=== PATIENT | female | born 1970 | race American Indian/Alaskan Native ===

== ENCOUNTER 2016-07-10 14:25 | Outpatient (CLI) | payer OTHER ==
--- NOTE | 2016-07-10 15:29 | Mammography Report ---
BILATERAL MAMMOGRAM: FINDINGS: The breasts are almost entirely fat (<25% glandular). No mass, distortion, suspicious calcification, or skin change is seen. There are no significant changes when compared to her prior examination in 2015. CAD was utilized. IMPRESSION: Negative mammogram. There is no mammographic evidence of malignancy. RECOMMENDATION: Follow-up per ACS guidelines. BI-RADS CATEGORY: 1 = Negative ACR BI-RADS MAMMOGRAPHIC CODES: 0 = Needs additional imaging evaluation; 1 = Negative; 2 = Benign; 3 = Probably benign; 4 = Suspicious; 5 = Malignant; 6 = Known biopsy-proven malignancy COMMENT: 1. Dense breast tissue, i.e., adenosis, fibrocystic changes, etc., may obscure an underlying neoplasm. 2. Approximately 10% of cancers are not detected with mammography. 3. A negative mammography report should not delay biopsy if a clinically suspicious mass is present. COMMENT: Patient follow-up letters are generated in [employer].
== END 2016-07-10 14:26 | disposition home or self-care (01) ==
LOC: SPVWC 14:25
PROVIDERS: ATTEND Family Medicine Sports Medicine
DX: Z12.31 Encounter for screening mammogram for malignant neoplasm of breast (principal)
CPT/HCPCS: 77067; G0202

== ENCOUNTER 2021-03-28 09:50 | Day surgery (SDC) | payer OTHER ==
--- NOTE | 2021-03-20 09:18 | History and Physical Report ---
History of Present Illness Date of examination: 03/17/21 Date of admission: 03/21/20 Chief complaint: heavy periods History of present illness: Visit Type: Pre-Op CC: Pre op. History of Present Illness: pt presents for pre op visit: Hysteroscopy with D&C......... ............................................................Kina Shankar March 17, 2021 1:57 PM Mask, Patient denies fever, cough, shortness of breath and exposure to COVID-19. Pt presents c/o heavier bleeding. Pt has h/o fibroids dx'd years ago and prior recently, had heavy period with passing clots but states periods are longer. She desires treatment as this is affecting her quality of life as she is soiling her clohting due to the bleeding. Pt had embx in prep for hysterectomy but no endometrial tissue was obtained. Pt here for pre op for hysteroscopy with D&C. All risk/benefits/alternatives were d/w pt and questions were addressed and answered. Consent signed and placed on the chart. 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 of genital herpes: no Hx of STD: None Active Medications (reviewed today): aspirin 81 mg tablet,delayed release (DR/EC) (aspirin) losartan 100 mg tablet (losartan) amlodipine 5 mg tablet (amlodipine) propranolol 60 mg tablet (propranolol) metformin 500 mg tablet (metformin) Current Allergies (reviewed today): No known allergies Past Medical History: Reviewed history from 01/10/2021 and no changes required: Hypertension obeisty Fibroids Past Surgical History: Reviewed history from 01/10/2021 and no changes required: positive wage hand sugery Family History Summary: Reviewed history and no changes required: 03/20/2021 Social History: Reviewed history from 01/10/2021 and no changes required: Patient is Smoking History: Patient has never smoked. referred by trihn Wagner Risk Factors: Smoked Tobacco Use: Never smoker Smokeless Tobacco Use: Never Passive Smoke Exposure: no HIV High Risk Behavior: no Exercise: no Seatbelt Use: 100 % PAP Smear History: Date of Last PAP Smear: 01/10/2021 Mammogram History: Date of Last Mammogram: 03/17/2021 Results: 08/2020 Colonoscopy History: Date of Last Colonoscopy: 06/05/2020 Results: Normal Alcohol Use: yes Type: occ Review of Systems See HPI [Labs In-House] Physical Exam Appearance: well developed, well nourished, no acute distress Other Exams Lungs: no rales, rhonchi, or wheezes Heart: S1, S2, no murmur, rub, or gallop Abdomen: soft, non-tender, no masses, bowel sounds normal Extremities: normal alignment, no joint enlargement, crepitus, masses or tenderness; normal tone and strength Genitourinary Exam Comments: deferred until EUA Past History Past Medical History: hypertension Past Surgical History: section, other (hand sx) 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 denies: abnormal PAP smear, chlamydia, gonorrhea Family/Genetic History: other (see hpi) Social history: other (see hpi) Medications and Allergies Allergies Allergy/AdvReac Type Severity Reaction Status Date / Time No Known Allergies Allergy Unverified 03/19/21 08:14 Home Medications Medication Instructions Recorded Confirmed Last Taken Type Losartan Potassium 100 mg PO DAILY 03/19/21 03/19/21 Unknown History Propranolol LA [Inderal LA] 60 mg PO QDAY 03/19/21 03/19/21 Unknown History amLODIPine [Norvasc] 5 mg PO DAILY 03/19/21 03/19/21 Unknown History metFORMIN [Glucophage] 500 mg PO BID 03/19/21 03/19/21 Unknown History Review of Systems All systems: negative - Physical Exam Cardiovascular: Normal S1, Normal S2 Lungs: Positive: Clear to auscultation, Normal air movement Abdomen: Positive: normal appearance, soft. Negative: distention, tenderness, guarding Genitourinary (Female): Positive: other (deferred until EUA) Extremities: Positive: normal Results All other labs normal. Assessment and Plan - Patient Problems (1) Menorrhagia with irregular cycle Status: Acute Plan to address problem: -embx not successful -to OR for hysteroscopy with D&C. I d/w possible myosure if a mass is noted inside of the uterus. She expressed understanding and all questions were addressed and answered. -consents signed and placed on the chart. (2) Uterine fibroid Status: Acute
[2021-03-20 11:47] LABS: Hematocrit 39.1 % (30.3-42.9); Hemoglobin 12.2 gm/dl (10.1-14.3); Mean Corpuscular HGB Conc 31 % (30-34); Mean Corpuscular Volume 81 fl (79-97); Platelet Count 247 K/mm3 (140-440); Red Blood Count 4.82 M/mm3 (3.65-5.03); Red Cell Distribution Width 13.5 % (13.2-15.2)
[2021-03-20 12:04] LABS: Blood Urea Nitrogen 12 mg/dL (7-17); Calcium 9.4 mg/dL (8.4-10.2); Hemolysis Index 3
[2021-03-20 12:06] LABS: BUN/Creatinine Ratio 20
--- NOTE | 2021-03-20 12:47 | Anesthesia Consultation ---
Anesthesia Consult and Med Hx Date of service: 03/21/21 - Airway Anesthetic Teeth Evaluation: Good ROM Head & Neck: Adequate Mental/Hyoid Distance: Adequate Mallampati Class: Class III Intubation Access Assessment: Probably Good - Pre-Operative Health Status ASA Pre-Surgery Classification: ASA3 Proposed Anesthetic Plan: General - Pulmonary Hx Sleep Apnea: No - Cardiovascular System Hx Hypertension: Yes (Cardiac note reviewed) Hx Coronary Artery Disease: Yes (Has + NST--> Mild ischemia) - Central Nervous System Hx Psychiatric Problems: No - Endocrine Hx Non-Insulin Dependent Diabetes: Yes - Other Systems Hx Alcohol Use: Yes (Occas) Hx Cancer: No Hx Obesity: Yes - Additional Comments Anesthesia Medical History Comments: +Cardiac clearance
[~2021-03-28 09:50] MED LIST: ACETAMINOPHEN 500 MG TAB PO SCH; LACTATED RINGERS 1,000 ML IV SCH; MIDAZOLAM 2 MG/2 ML INJ IV NR; SCOPOLAMINE TRANSDERMAL PATCH 72 HR TD NR
--- NOTE | 2021-03-28 11:14 | Anesthesia Day of Surgery ---
Anesthesia Day of Surgery - Day of Surgery Patient Examined: Yes Patient H&P Reviewed: Yes Patient is NPO: Yes
[2021-03-28] MEDS ORDERED: ceFAZolin/Water 2 GM/20 ML 2 GM/20 ML SYRINGE IV ONE (11:40)
[2021-03-28] MEDS ORDERED: LIDOCAINE MPF (2%) 20 MG/1 ML VIAL 5 ML ONE ×2 (12:46→13:57)
[2021-03-28] MEDS ORDERED: ONDANSETRON 4 MG/2 ML INJ ONE ×2 (12:46→13:57)
[2021-03-28] MEDS ORDERED: fentaNYL 100 MCG/2 ML INJ ONE ×2 (12:46→13:57)
[2021-03-28] MEDS ORDERED: propofoL 200 MG/20 ML VIAL IV ONE ×2 (12:48→13:57)
[2021-03-28] MEDS ORDERED: ePHEDrine SULFATE 50 MG/1 ML INJ ONE (13:15)
[2021-03-28] MEDS ORDERED: dexAMETHasone 20 MG/5 ML VIAL ONE ×2 (13:37→13:57)
[2021-03-28] MEDS ORDERED: SODIUM CHLORIDE 0.9% IRRIG SOLN 2000 ML IR ONE (13:45)
--- NOTE | 2021-03-28 14:05 | Operative Report ---
Operative Report Operative Report: Date of procedure: 03/28/2021 Pre-operative diagnosis: Menometrorrhagia Uterine fibroids Post-operative diagnosis: Same plus intrauterine fibroid Procedure name(s): 1. Hysteroscopy 2. MyoSure 3. Dilatation and uterine curettage Surgeon: Natasha Ferguson M.D. Bladder Tier: TAPAN Anesthesia: General endotracheal anesthesia EBL: Minimal to 100 mL Urine output: 150 mL of clear urine out via straight catheterization prior to the onset of the procedure Fluids: 500 mL Fluid deficit: 105 mL Findings: Thickened endometrium in the lower uterine segment. Approximately 2 cm fibroid noted in the uterine cavity on the left uterine wall. Indications: Patient with history of menometrorrhagia. Patient underwent saline infused sonogram that was unsuccessful and unable to obtain any endometrial tissue. Decision was made to proceed with hysteroscopy dilatation and curettage. Upon doing hysteroscopy patient was noted to have intrauterine fibroid and is at this point the MyoSure was done. Procedure: Patient was taken to the operating room where she was placed under general endotracheal anesthesia she was then prepped and draped in normal sterile fashion in dorsal lithotomy position with legs in Eleazar stirrups. Straight catheterization of the bladder was performed at this time. Sterile speculum was placed inside of the vagina to visualize the entire cervix. The anterior lip of the cervix was grasped with a single-tooth tenaculum and the uterus was sounded to 9 cm. The cervix was then dilated in order to allow passage of the hysteroscope. Hysteroscopy yielded the above-stated findings. About 2cm endometrial mass was noted. the Myosure device was then used to suction and remove a great portion of the intrauterine mass. However due to the density of the mass it could not be removed in its entirety also is appeared to be calcified which made removal difficult. MyoSure device was also used as well as to remove thickened tissue of the endometrium. At the end of the procedure, cavity appears clear with the exception of a small stump of the fibroid remaining. It was noted to be hemostatic. All instruments were removed from the vagina and the cervix. Patient tolerated the procedure well. All counts were correct.
--- NOTE | 2021-03-28 14:06 | Short Stay Summary ---
Short Stay Documentation Date of service: 03/28/21 - History H&P: dictated Social history: other (see hpi) - Allergies and Medications Current Medications: Allergies No Known Allergies Allergy (Unverified 03/19/21 08:14) Home Medications Medication Instructions Recorded Confirmed Last Taken Type Losartan Potassium 100 mg PO DAILY 03/19/21 03/19/21 03/27/21 History Propranolol LA [Inderal LA] 60 mg PO QDAY 03/19/21 03/19/21 03/27/21 History amLODIPine [Norvasc] 10 mg PO DAILY 03/19/21 03/20/21 03/27/21 History metFORMIN [Glucophage] 500 mg PO BID 03/19/21 03/19/21 03/27/21 History Aspirin [[place]] 81 mg PO DAILY 03/20/21 03/20/21 03/15/21 History Active Medications Acetaminophen (Acetaminophen 500 Mg Tab) 1,000 mg PO PREOP GABBY Last Admin: 03/28/21 11:36 Dose: 1,000 mg Lactated Ringer's (Lactated Ringers) 1,000 mls @ 125 mls/hr IV DIRECT GABBY Last Admin: 03/28/21 10:35 Dose: 125 mls/hr Scopolamine (Scopolamine Transdermal Patch 72 Hr) 1 each TD PREOP NR Stop: 03/28/21 23:59 Last Admin: 03/28/21 11:36 Dose: 1 each - Brief post op/procedure progress note Date of procedure: 03/28/21 Pre-op diagnosis: Menorrhagia; uterine fibroids Post-op diagnosis: same Procedure: EUA HYsteroscopy Myosure D&C hysteroscopic myomectomy Anesthesia: GETA Findings: See operative report Surgeon: AIDEN LANGSTON Estimated blood loss: minimal Pathology: list (Uterine contents) Specimen disposition: to lab Condition: stable - Hospital course Hospital course: Patient was admitted for above-stated procedure. Patient will remain in recovery until she has met discharge criteria. Patient will discharge home with follow-up with Dr. Patel in 1 week. - Disposition Condition at discharge: Good Disposition: 01 HOME / SELF CARE / HOMELESS - Discharge Diagnoses (1) Menorrhagia with irregular cycle Status: Acute (2) Uterine fibroid Status: Acute Short Stay Discharge Plan Activity: no restrictions Weight Bearing Status: Weight Bear as Tolerated Diet: regular Follow up with: [facility] [Other] - 7 Days AIDEN LANGSTON MD [Staff Physician] - 7 Days Prescriptions: Ibuprofen [Motrin 800 MG tab] 800 mg PO Q8HR PRN #30 tablet PRN Reason: Pain, Moderate (4-6) oxyCODONE /ACETAMINOPHEN [Percocet 5/325] 1 tab PO Q4HR #10 tab
--- NOTE | 2021-03-28 15:11 | Post Anesthesia Evaluation ---
- Post Anesthesia Evaluation Patient Participated: Yes Airway Patent: Yes Stable Respiratory Function: Yes Nausea/Vomiting: No Temp > 96.8F: Yes Pain Manageable: Yes Adequeate Hydration: Yes Anesthesia Complications: No
[2021-03-28 17:49] VITALS: BP 152/92
== END 2021-03-28 09:51 | disposition home or self-care (01) ==
LOC: OR 09:50
PROVIDERS: ATTEND Obstetrics & Gynecology
DX: N92.1 Excessive and frequent menstruation with irregular cycle (principal); I25.10 Atherosclerotic heart disease of native coronary artery without angina pectoris; I10 Essential (primary) hypertension; M19.90 Unspecified osteoarthritis, unspecified site; E11.9 Type 2 diabetes mellitus without complications; Z20.822 Contact with and (suspected) exposure to COVID-19; Z72.89 Other problems related to lifestyle; Z98.891 History of uterine scar from previous surgery; Z79.899 Other long term (current) drug therapy; Z98.890 Other specified postprocedural states; Z79.82 Long term (current) use of aspirin
CPT/HCPCS: 36415; 58558; 80048; 82962; 84703; 85027; 88305; C1782; J0690; J1100; J2405; J2704; J3010; J3490; J7120; U0003

== ENCOUNTER 2021-07-01 05:51 | Observation (INO) | payer OTHER ==
[2021-06-26 13:04] LABS: Basophils % (Auto) 0.4 % (0.0-1.8); Eosinophils # (Auto) 0.1 K/mm3 (0.0-0.4); Eosinophils % (Auto) 2.1 % (0.0-4.3); Hematocrit 34.5 % (30.3-42.9); Hemoglobin 11.5 gm/dl (10.1-14.3); Lymphocytes # (Auto) 2.1 K/mm3 (1.2-5.4); Lymphocytes % (Auto) 34.9 % (13.4-35.0); Mean Corpuscular HGB Conc 33 % (30-34); Mean Corpuscular Volume 80 fl (79-97); Monocytes # (Auto) 0.6 K/mm3 (0.0-0.8); Monocytes % (Auto) 9.5 % (0.0-7.3); Platelet Count 254 K/mm3 (140-440); Red Blood Count 4.31 M/mm3 (3.65-5.03); Red Cell Distribution Width 13.7 % (13.2-15.2)
[2021-06-26 13:23] LABS: Blood Urea Nitrogen 15 mg/dL (7-17); Calcium 9.1 mg/dL (8.4-10.2); Hemolysis Index 1
[2021-06-26 13:45] LABS: BUN/Creatinine Ratio 21
--- NOTE | 2021-06-26 15:20 | Anesthesia Consultation ---
Anesthesia Consult and Med Hx Date of service: 07/01/21 - Airway Anesthetic Teeth Evaluation: Good (Missing) ROM Head & Neck: Adequate Mental/Hyoid Distance: Adequate Mallampati Class: Class II Intubation Access Assessment: Good - Pre-Operative Health Status ASA Pre-Surgery Classification: ASA3 Proposed Anesthetic Plan: General - Pulmonary Hx Smoking: No Hx Sleep Apnea: No (SNORES - PACO PRESCREEN HIGH) - Cardiovascular System Hx Hypertension: Yes (+Cardiac clearance) Hx Coronary Artery Disease: Yes (Has + NST--> Mild ischemia) - Central Nervous System Hx Back Pain: Yes Hx Psychiatric Problems: No - Gastrointestinal Hx Gastroesophageal Reflux Disease: Yes - Endocrine Hx Non-Insulin Dependent Diabetes: Yes - Hematic Hx Anemia: No Hx Sickle Cell Disease: No - Other Systems Hx Alcohol Use: No Hx Substance Use: No Hx Cancer: No Hx Obesity: Yes - Additional Comments Anesthesia Medical History Comments: Was here [id number]
--- NOTE | 2021-06-30 11:36 | History and Physical Report ---
History of Present Illness Date of examination: 06/25/21 Date of admission: 07/01/21 Chief complaint: heavy vaginal bleeding History of present illness: Pt here for preop visit for lavh with BS dueto perimenopausal menorrhagia and dysmenorrhea. All risk/benefits/alternatives were d/w pt and questions were addressed and answered. I also d/w including but not limited to need for BOIE. EX LAP, blood transfusion, proloned hosptial stay,antibiotic therapy. Pt expressed understanding. pt did get medical clearance for hysterectomy in Feb 2021.she was advsised to call cardiology about having updated medical clearance. Medical clearance was for hysterectomy and when submitted today it was the same letter. No new clearance recommended by cardiology at this time as per pt. 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) Family/Genetic History: other (see hpi) Social history: other (see hpi) Medications and Allergies Allergies Allergy/AdvReac Type Severity Reaction Status Date / Time No Known Allergies Allergy Unverified 03/19/21 08:14 Home Medications Medication Instructions Recorded Confirmed Last Taken Type Losartan Potassium 100 mg PO DAILY 03/19/21 03/19/21 03/27/21 History Propranolol LA [Inderal LA] 60 mg PO QDAY 03/19/21 03/19/21 03/27/21 History amLODIPine [Norvasc] 10 mg PO DAILY 03/19/21 03/20/21 03/27/21 History metFORMIN [Glucophage] 500 mg PO BID 03/19/21 03/19/21 03/27/21 History Ascorbic Acid [Vitamin C] 500 mg PO DAILY 06/25/21 06/25/21 Unknown History Vitamin B-12 1 tab PO DAILY 06/25/21 06/25/21 Unknown History Zinc 1 dose PO DAILY 06/25/21 06/25/21 Unknown History Active Meds: Active Medications Acetaminophen (Acetaminophen 500 Mg Tab) 1,000 mg PO ONCE ONE Stop: 07/01/21 06:01 Celecoxib (Celecoxib 200 Mg Cap) 400 mg PO PREOP NR Stop: 07/01/21 23:59 Gabapentin (Gabapentin 300 Mg Cap) 600 mg PO PREOP NR Stop: 07/01/21 23:59 Lactated Ringer's (Lactated Ringers) 1,000 mls @ 125 mls/hr IV DIRECT GABBY Magnesium Oxide (Magnesium Oxide 400 Mg Tab) 400 mg PO ONCE ONE Stop: 07/01/21 06:01 Methocarbamol (Methocarbamol 750 Mg Tab) 1,500 mg PO ONCE ONE Stop: 07/01/21 06:01 Midazolam HCl (Midazolam 2 Mg/2 Ml Inj) 2 mg IV PREOP NR Stop: 07/01/21 23:59 - Vital Signs Vital signs: Vital Signs Temp Pulse Resp BP Pulse Ox 97.5 F L 81 16 129/77 99 06/25/21 13:00 06/25/21 13:00 06/25/21 13:00 06/25/21 13:00 06/25/21 13:00 Temp Pulse Resp BP Pulse Ox 97.5 F L 81 16 129/77 99 06/25/21 13:00 06/25/21 13:00 06/25/21 13:00 06/25/21 13:00 06/25/21 13:00 Results Result Diagrams: 06/26/21 12:55 06/26/21 06:00 All other labs normal. Assessment and Plan - Patient Problems (1) Diabetes Status: Acute Qualifiers: Diabetes mellitus type: type 2 Diabetes mellitus complication status: without complication (2) Hypertension Status: Acute (3) Menorrhagia with irregular cycle Status: Acute Plan to address problem: desires lavh with bs. s/p normal hysteroscopy with D&C -consents signed and placed on the chart (4) Uterine fibroid Status: Acute
[2021-07-01] MEDS ORDERED: GABAPENTIN 300 MG CAP PO NR (06:00)
[2021-07-01] MEDS ORDERED: MIDAZOLAM 2 MG/2 ML INJ IV NR ×2 (06:00)
[2021-07-01] MEDS ORDERED: LACTATED RINGERS 1,000 ML IV SCH (06:00)
[2021-07-01] MEDS ORDERED: CELECOXIB 200 MG CAP PO NR ×2 (06:00→07:00)
[2021-07-01] MEDS ORDERED: ACETAMINOPHEN 500 MG TAB PO ONE (06:00)
[2021-07-01] MEDS ORDERED: MAGNESIUM OXIDE 400 MG TAB PO ONE (06:00)
[2021-07-01] MEDS ORDERED: ONDANSETRON 4 MG/2 ML INJ IV PRN (07:00)
[2021-07-01] MEDS ORDERED: HYDROmorphone 1 MG/1 ML INJ IV PRN (07:00)
[2021-07-01] MEDS ORDERED: oxyCODONE /ACETAMINOPHEN 5-325MG TAB PO PRN (07:00)
--- NOTE | 2021-07-01 07:31 | Anesthesia Day of Surgery ---
Anesthesia Day of Surgery - Day of Surgery Patient Examined: Yes Patient H&P Reviewed: Yes Patient is NPO: Yes
[2021-07-01] MEDS ORDERED: BUPIVACAINE/PF (0.5%) 5 MG/1 ML 30 ML VIAL INFILTRATI ONE ×2 (07:41→09:45)
[2021-07-01] MEDS ORDERED: VASOPRESSIN 20 UNIT/1 ML INJ ONE (07:42)
[2021-07-01] MEDS ORDERED: SODIUM CHLORIDE 0.9% 100 ML ONE (07:42)
[2021-07-01] MEDS ORDERED: LIDOCAINE MPF (2%) 20 MG/1 ML VIAL 5 ML ONE (07:45)
[2021-07-01] MEDS ORDERED: ROCURONIUM 50 MG/5 ML INJ IV ONE (07:45)
[2021-07-01] MEDS ORDERED: ONDANSETRON 4 MG/2 ML INJ ONE (07:45)
[2021-07-01] MEDS ORDERED: fentaNYL 100 MCG/2 ML INJ ONE (07:46)
[2021-07-01] MEDS ORDERED: propofoL 200 MG/20 ML VIAL IV ONE (07:46)
[2021-07-01] MEDS ORDERED: HYDROmorphone 1 MG/1 ML INJ ONE (07:46)
[2021-07-01] MEDS ORDERED: ceFAZolin/Water 2 GM/20 ML 2 GM/20 ML SYRINGE IV ONE (07:58)
[2021-07-01] MEDS ORDERED: ceFAZolin 1 GM VIAL ONE (08:39)
[2021-07-01] MEDS ORDERED: ePHEDrine SULFATE 50 MG/1 ML INJ ONE (09:18)
[2021-07-01] MEDS ORDERED: VASOPRESSIN 20 UNIT/1 ML INJ IV ONE (09:46)
[2021-07-01] MEDS ORDERED: SODIUM CHLORIDE 0.9% 100 ML IVPB IV ONE (09:47)
[2021-07-01] MEDS ORDERED: LACTATED RINGERS 1,000 ML ONE (10:29)
[2021-07-01] MEDS ORDERED: GLYCOPYRROLATE 0.4 MG/2 ML INJ ONE (10:30)
[2021-07-01] MEDS ORDERED: NEOSTIGMINE 10MG/10 ML INJ MDV ONE (10:30)
[2021-07-01] MEDS ORDERED: ACETAMINOPHEN 325 MG TAB PO PRN (12:28)
[2021-07-01] MEDS ORDERED: IBUPROFEN 800 MG TAB PO PRN (12:36)
[2021-07-01] MEDS ORDERED: MORPHINE 4 MG/1 ML INJ IV PRN (12:36)
[2021-07-01] MEDS ORDERED: HYDROcodone/ACETAMINOPHEN 5-325 MG TAB PO PRN (12:36)
--- NOTE | 2021-07-01 12:46 | Operative Report ---
Operative Report Operative Report: Date of procedure: 07/01/2021 Pre-operative diagnosis: Fibroid uterus Menorrhagia Dysmenorrhea Post-operative diagnosis: Same Procedure name(s): Laparoscopic assisted vaginal hysterectomy Surgeon: Natasha Ferguson MD Model Photographers': Dr. Simmons Anesthesia: General endotracheal anesthesia EBL: 200 mL Urine output: 700 mL of clear urine out at end of the procedure Fluids: 1500 mL Findings: Enlarged uterus Evidence of bilateral salpingectomy Normal ovaries bilaterally Indications: Patient presents with perimenopausal menorrhagia and dysmenorrhea. Patient desired definitive therapy. Patient had consent signed and placed on the chart all questions were addressed and answered. Procedure: Patient was taken to the operating room where she was placed under general endotracheal anesthesia. She was then prepped and draped in sterile fashion. It was at this point that the large [employer] uterine manipulator was placed inside of the uterus after the uterus was sounded to approximately 12 cm. Sanderson catheter was also placed at this time. Attention was then turned to the umbilicus in which a supraumbilical incision was made. Under direct visualization the 5 mm trocar was placed inside the peritoneum the peritoneum was then insufflated. As at this point that the laparoscopic portion of the procedure was performed. 2 lateral 5 mm ports were also placed under direct visualization. Using the tripolar instrument the upper pedicles were cauterized and transected to the including round ligament with excellent hemostasis noted bilaterally. Attention was then turned vaginally. A weighted speculum was placed into the vagina and the cervix was grasped with a single-tooth tenaculum 2. The cervix was then injected circumferentially with Pitressin. The cervix was then circumferentially incised with the scalpel and the bladder dissected off of the pubovesical cervical fascia anteriorly with a sponge stick and Metzenbaum scissors. The same procedure was performed posteriorly and the posterior cul-de-sac was entered into sharply without difficulty. At this point a Maria Victoria Clamp was placed over the uterosacral ligaments on either side. These were then transected and suture ligated with 0 Vicryl. Hemostasis was assured. The cardinal ligaments were then clamped on both sides transected and suture ligated in similar fashion. The uterine arteries were then serially clamped with Maria Victoria clamps transected and suture ligated on both sides. Excellent hemostasis was visualized. After it was clear that the uterus had been completely from all pedicles the uterus was removed vaginally intact with cervix intact. The vaginal cuff angles were closed with figure of 8 stitches of 0 Vicryl on both sides. The peritoneum was incorporated in the stitching of the vaginal cuff as much as possible. A series of interrupted figure of 8 sutures using 0 Vicryl were used to close the entire vaginal cuff. Excellent hemostasis was noted. The vagina was then irrigated copiously. Attention was then turned laparoscopically at which time. Again all pedicles were noted to be hemostatic. The ureters were identified bilaterally with peristalsis noted bilaterally. Surgicel was placed along the vaginal cuff to secure excellent hemostasis. All instruments were then removed from the abdomen and the vagina. All gas was released from the abdomen. The abdominal incisions were closed using 4-0 Monocryl. All of the abdominal incisions were injected with Marcaine without epi. Patient tolerated the procedure well sponge lap and needle counts were all correct 3 the patient was taken to the recovery room awake and in stable condition.
[2021-07-01] MEDS: KETOROLAC 30 MG/1 ML INJ IV PRN ×2 (12:48→20:10)
[2021-07-01] MEDS: INSULIN REGULAR, HUMAN 100 UNITS/1 ML SUB-Q SCH ×2 (16:20→23:25)
--- NOTE | 2021-07-01 16:22 | Event Note ---
Date: 07/01/21 Post op check: Pt doing well. Pain is well controlled. Findings of sx d/w pt. D/w that due to pulse some bp meds will be held at this time and re started if needed. Also d/w SSI prn elevated glucose levels. Pt expressed understanding and questions were addressed and answered. 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
[2021-07-01] MEDS ORDERED: DEXTROSE 50% IN WATER (25GM) 50 ML SYRINGE IV PRN (16:30)
[2021-07-01] MEDS: ceFAZolin/NS 1 GM/50 ML 1 GM/50 ML BAG IV SCH (16:41)
[2021-07-01] MEDS: metFORMIN 500 MG TAB PO SCH (16:41)
[2021-07-02] MEDS: ceFAZolin/NS 1 GM/50 ML 1 GM/50 ML BAG IV SCH (00:35)
[2021-07-02] MEDS: KETOROLAC 30 MG/1 ML INJ IV PRN (04:45)
[2021-07-02 06:22] LABS: Hematocrit 32.4 % (30.3-42.9); Hemoglobin 10.4 gm/dl (10.1-14.3)
[2021-07-02] MEDS: INSULIN REGULAR, HUMAN 100 UNITS/1 ML SUB-Q SCH ×2 (06:30→11:46)
--- NOTE | 2021-07-02 09:07 | Discharge Summary ---
Providers - Providers Date of Admission: 07/01/21 12:28 Date of discharge: 07/02/21 Attending physician: AIDEN LANGSTON Hospitalization Reason for admission: other (lavh) Procedure: other (lavh) Procedure details: see op note Incision: normal, dry, intact (open to air) Discharge diagnosis: other (s/p LAVH) Hospital course: Pt s/p LAVH that was not complicated. She had routine post op care and was d/c home on POD #1. Pt will f/u in the office in one week. Condition at discharge: Good Disposition: 01 HOME / SELF CARE / HOMELESS - Discharge Diagnoses (1) Diabetes Status: Acute Qualifiers: Diabetes mellitus type: type 2 (2) Hypertension Status: Acute (3) Menorrhagia with irregular cycle Status: Acute (4) Uterine fibroid Status: Acute Plan - Discharge Medications Prescriptions: Ferrous Sulfate [Feosol 325 MG tab] 325 mg PO QDAY #60 tablet Ibuprofen [Motrin 800 MG tab] 800 mg PO Q8HR PRN #30 tablet PRN Reason: Pain, Moderate (4-6) oxyCODONE /ACETAMINOPHEN [Percocet 5/325] 1 tab PO Q4HR #10 tab - Provider Discharge Summary Activity: routine, no sex for 6 weeks, no heavy lifting 4 weeks Diet: routine Instructions: routine Additional instructions: [] Smoking cessation referral if applicable(refer to patient education folder for contact #) [] Refer to [facility]'s [facility] Booklet Call your doctor immediately for: * Fever > 100.5 * Heavy vaginal bleeding ( >1 pad per hour) * Severe persistent headache * Shortness of breath * Reddened, hot, painful area to leg or breast * Drainage or odor from incision. * Keep incision clean and dry at all times and follow doctor's instructions regarding bathing/showering - Follow up plan Follow up: [facility] [Other] - 7 Days Forms: [facility] Discharge Summary
--- NOTE | 2021-07-02 09:07 | Progress Note ---
Assessment and Plan - Patient Problems (1) Diabetes Status: Acute Qualifiers: Diabetes mellitus type: type 2 Diabetes mellitus complication status: without complication (2) Hypertension Status: Acute (3) Menorrhagia with irregular cycle Status: Acute (4) Uterine fibroid Status: Acute (5) S/P laparoscopic assisted vaginal hysterectomy (LAVH) Status: Acute Plan to address problem: -routine post op care -d/c this pm if tolerates breakfast and lunch -f/u in office in one week. Subjective - Subjective Date of service: 07/02/21 Principal diagnosis: POD #1 s/p LAVH Interval history: Pt doing well. Tolerating a cleard diet. Pain well controlled. +ambulation and spontaneous voiding. Pt request regular diet this am and she was advised it has already been ordered. Findings of surgery were again d/w pt and questions were addressed and answered. Patient reports: appetite normal, voiding normally, pain well controlled, ambulating normally, no dizzy ambulation, no nauseated Objective - Vital Signs Latest vital signs: Vital Signs Temp Pulse Resp BP BP Pulse Ox 07/02/21 08:52 98.4 F 83 20 100/49 99 07/02/21 08:43 99 07/02/21 04:13 97.9 F 96 H 18 117/63 100 07/02/21 00:02 98.6 F 85 16 112/65 99 07/01/21 20:05 60 98 07/01/21 19:41 97.8 F 63 16 151/74 98 07/01/21 16:44 97.1 F L 61 16 151/90 100 07/01/21 13:40 97.6 F 55 L 16 153/79 97 07/01/21 13:15 59 L 16 150/78 99 07/01/21 13:00 97.3 F L 58 L 16 141/93 97 07/01/21 12:45 55 L 16 139/82 100 07/01/21 12:35 56 L 16 141/80 100 07/01/21 12:30 59 L 14 135/72 100 07/01/21 12:26 98.6 F 57 L 14 146/75 100 Intake and Output 07/01/21 07/02/21 07/02/21 22:59 06:59 14:59 Intake Total 150 120 Output Total 650 1350 500 Balance -500 -1350 -380 Intake: IV 50 ANCEF/NS 1 GM/50 ML 1 gm 50 In 50 ml @ 100 mls/hr IV Q8H [facility] Rx#:[id number] Oral 100 120 Output: Urine 650 1350 500 Indwelling Catheter 650 1350 Void 400 Other: Total, Intake Amount 100 120 Total, Output Amount 350 200 300 Voiding Method Indwelling Catheter Toilet # Voids 1 Void 1 - Exam Breasts: Present: normal Cardiovascular: Present: Normal S1, Normal S2 Lungs: Present: Clear to auscultation, Normal air movement Abdomen: Present: normal appearance, soft, normal bowel sounds. Absent: distention, tenderness, guarding Incision: Present: normal, dry, intact - Labs Labs: Abnormal lab results 07/01/21 07/01/21 07/01/21 Range/Units 07:02 12:31 16:23 POC Glucose 108 H 139 H 146 H (70-105) mg/dL 07/01/21 Range/Units 23:00 POC Glucose 107 H (70-105) mg/dL
[2021-07-02] MEDS: metFORMIN 500 MG TAB PO SCH (09:50)
[2021-07-02] MEDS ORDERED: PROPRANOLOL LA 60 MG CAP PO SCH (10:00)
[2021-07-02] MEDS ORDERED: LOSARTAN 50 MG TAB PO SCH (10:00)
[2021-07-02] MEDS ORDERED: amLODIPine 10 MG TAB PO SCH (10:00)
[2021-07-02 14:04] VITALS: BP 93/50
== END 2021-07-02 16:20 | disposition home or self-care (01) ==
LOC: OR 05:51 → OB 12:28
PROVIDERS: ADMIT Obstetrics & Gynecology; ATTEND Obstetrics & Gynecology
DX: N92.1 Excessive and frequent menstruation with irregular cycle (principal); Z20.822 Contact with and (suspected) exposure to COVID-19; D25.9 Leiomyoma of uterus, unspecified; N94.6 Dysmenorrhea, unspecified; I10 Essential (primary) hypertension; E66.9 Obesity, unspecified; E11.9 Type 2 diabetes mellitus without complications; Z79.84 Long term (current) use of oral hypoglycemic drugs; Z79.82 Long term (current) use of aspirin; Z79.899 Other long term (current) drug therapy; Z98.891 History of uterine scar from previous surgery; Z68.42 Body mass index [BMI] 45.0-49.9, adult
CPT/HCPCS: 36415; 58553; 80048; 82962; 84703; 85014; 85018; 85025; 86850; 86900; 86901; 88307; 96365; 96366; 96375; 96376; G0378; J0690; J1170; J1815; J1885; J2250; J2405; J2704; J2710; J3010; J3490; J7120; U0003

== ENCOUNTER 2021-07-03 19:29 | Emergency (ER) | payer SELFPAY ==
[2021-07-03 21:29] VITALS: BP 160/50
== END 2021-07-03 23:30 | disposition left against medical advice (07) ==
LOC: ED 19:29
DX: R11.2 Nausea with vomiting, unspecified (principal); Z53.21 Procedure and treatment not carried out due to patient leaving prior to being seen by health care provider